=== PATIENT | male | born 1975 | race African-American/Black ===

== ENCOUNTER 2020-01-29 07:12 | Emergency (ER) | payer SELFPAY ==
[2020-01-29 07:36] LABS: #Basophils 0.1 thou/uL (0.0-0.2); #Eosinphils 0.2 thou/uL (0.0-0.7); #Lymphocytes 1.2 thou/uL (1.20-3.40); #Monocytes 0.4 thou/uL (0.11-0.59); %Basophils 0.7 % (0.0-1.0); %Eosinophils 2.3 % (0.0-10.0); %Lymphocytes 14.9 % (21.0-51.0); %Monocytes 5.3 % (0.0-10.0); %Neutrophils 76.8 % (42.0-75.0); Mean Corpuscular HGB CONC 30.2 g/dL (32.0-36.0); Mean Corpuscular Hemoglobin 25.8 pg (27.0-31.0); Mean Corpuscular Volume 85.4 fL (78.0-98.0); Mean Platelet Volume 7.4 fL (7.4-10.4); Platelet Count 188 thou/uL (130-400); RBC Distribution Width 14.3 % (11.5-14.5); White Blood Cell (WBC) Count 7.8 thou/uL (4.8-10.8)
[2020-01-29] MEDS ORDERED: Aspirin Chewable 81 MG TAB ONE (07:50)
[2020-01-29] MEDS ORDERED: Nitroglycerin 0.4 MG TAB 1 EACH ONE (07:50)
[2020-01-29] MEDS ORDERED: Nitroglycerin 50 MG/250 ML BOT 250 ML ONE (07:50)
[2020-01-29 07:51] LABS: ALT (SGPT) 38 U/L (8-55); AST (SGOT) 30 U/L (5-34); Alkaline Phosphatase 93 U/L (40-110); Anion Gap 14 mmol/L (10-20); BUN (Urea Nitrogen) 13 mg/dL (8.9-20.6); Bilirubin, Total 0.6 mg/dL (0.2-1.2); Calc. Creatinine Clearance 0 mL/min (70-130); Calcium 8.6 mg/dL (7.8-10.44); Carbon Dioxide 28 mmol/L (22-29); Chloride 105 mmol/L (98-107); Globulin 3.8 g/dL (2.4-3.5); Glucose 131 mg/dL (70-105); Lipase 9 U/L (8-78); Potassium 3.5 mmol/L (3.5-5.1); Protein, Total 7.8 g/dL (6.0-8.3); Sodium 143 mmol/L (136-145)
[2020-01-29 08:08] LABS: CKMB 1.8 ng/mL (0-6.6)
[2020-01-29] MEDS ORDERED: Iopamidol 370 76% 100 ML VIAL ONE (10:52)
--- NOTE | 2020-01-29 17:03 | RAD ---
PORTABLE CHEST: 01/29/20 An AP portable film at 0748 is presented with no prior films available for comparison. The heart is moderately enlarged. The vessels appear somewhat congested, so CHF is possible. I do not see any large effusions. No lobar infiltrates were seen. IMPRESSION: Cardiomegaly and mild vascular congestion. CHF is presumed. POS: HOME
--- NOTE | 2020-01-29 17:12 | CT ---
CT ANGIO OF THE CHEST 01/29/[address] of the chest was performed for evaluation of this patient with dyspnea. The sensitivity of the study is extremely low due to body habitus and difficulty timing the bolus in this patient. The main (right and left) pulmonary arteries did not appear to have any major defects within them to suggest emboli. Passed that level, the density of the contrast stream is not sufficient to rule in or rule out disease. The aorta showed no sign of aneurysm or dissection. The heart is enlarged. The vas culature of the lungs seem engorged. There are a few patchy ground glass densities, rather small, in the lungs. This is predominantly in the right lung, upper and lower lobes, but there are some findin gs in the left lung as well. There are no large effusions. IMPRESSION: 1. Very low sensitivity study as stated above. No obvious large emboli in the two main pulmonary arteries, but the study is indeterminate beyond that point. 2. Large heart with congested vessels. Some element of CHF is presumed. 3. Several patchy ground glass densities are seen bilaterally, more so on the right. While some of these could be secondary to alveolar edema beginning to form, I cannot rule out infection as an et iology, including COVID. Findings discussed with Dr. Rivera at 0905 on 01/29/20. POS: HOME
== END 2020-01-29 09:40 | disposition short-term general hospital (02) ==
LOC: BURERS 07:12
DX: I11.0 Hypertensive heart disease with heart failure (principal); I50.9 Heart failure, unspecified; I48.91 Unspecified atrial fibrillation; E66.9 Obesity, unspecified
CPT/HCPCS: 36415; 71045; 71275; 80053; 82553; 83690; 83880; 84484; 85025; 93005; 96365; Q9967